=== PATIENT | female | born 1955 | race Two or more races ===

== ENCOUNTER → 2024-08-24 | Emergency (ER) | payer OTHER ==
[~2024-08-24] VITALS: Ht 172.7 cm; Wt 83.9 kg
[2024-08-24 16:39] VITALS: BP 129/70; O2SAT 99
== END | disposition home or self-care (01) ==
LOC: ER 16:05
DX: S80.811A Abrasion, right lower leg, initial encounter (principal); W10.8XXA Fall (on) (from) other stairs and steps, initial encounter; Y93.89 Activity, other specified; Y92.59 Other trade areas as the place of occurrence of the external cause; Y99.9 Unspecified external cause status; Z88.6 Allergy status to analgesic agent; Z88.0 Allergy status to penicillin; Z88.8 Allergy status to other drugs, medicaments and biological substances